=== PATIENT | female | born 1970 | race Caucasian/White ===

== ENCOUNTER 2020-01-29 00:03 | Emergency (ER) | payer BC ==
[~2020-01-29] VITALS: Ht 170.2 cm; Wt 111.1 kg
--- NOTE | 2020-01-29 00:30 | NUR ---
Patient to ER bed 7 to gown for evaluation. Side rails up.
--- NOTE | 2020-01-29 00:50 | NUR ---
Pt. presents to the ED ambulatory and A&Ox4. She was jogging at around 20:30 and slipped and fell. She has a laceration 3-4cm to the right elbow, bruising to the right knee, and right shoulder pain. Patient denies pain and any other symptoms. VSS.
--- NOTE | 2020-01-29 00:50 | NUR ---
Josefina barbosa in EDM - 01/29/20 at 0108 by FLOYD Pt. presents to the ED ambulatory and A&O x4
--- NOTE | 2020-01-29 00:52 | NUR ---
ER Dr. Diego at bedside examining patient.
[2020-01-29] MEDS ORDERED: DIPH-TET-PERTUS Vaccine 0.5 ML VIAL (ADACEL) I.M. ONE (01:00)
--- NOTE | 2020-01-29 01:05 | NUR ---
Radiology at bedside with pt.
--- NOTE | 2020-01-29 01:40 | NUR ---
Dr. Diego bedside for lac repair procedure. well tolerated
[2020-01-29] MEDS ORDERED: LIDOCAINE/EPI 1% 1:100000 20 ML VIAL INJ ONE (01:57)
[2020-01-29 02:00] VITALS: BP_SYST 122
--- NOTE | 2020-01-29 02:00 | NUR ---
Patient given written and verbal discharge instructions and verbalizes understanding. ER MD discussed with patient the results and treatment provided. Patient in stable condition. ID arm band removed.Patient educated on pain management and to follow up with PMD. Pain Scale 0/10. Opportunity for questions provided and answered. Medication side effect fact sheet provided.
[2020-01-29] MEDS ORDERED: BACITRACIN 1 GM OINT TP ONE (02:08)
== END 2020-01-29 02:00 | disposition home or self-care (01) ==
LOC: SED 00:03
DX: S50.01XA Contusion of right elbow, initial encounter (principal); S80.01XA Contusion of right knee, initial encounter; S51.011A Laceration without foreign body of right elbow, initial encounter; W18.39XA Other fall on same level, initial encounter; Y93.89 Activity, other specified; Y92.89 Other specified places as the place of occurrence of the external cause; Y99.8 Other external cause status
CPT/HCPCS: 73564; 90715; 99284